=== PATIENT | male | born 1940 | race Caucasian/White ===

== ENCOUNTER 2016-07-29 12:28 | Emergency (ER) | payer MEDICARE, BC ==
[2016-07-29 13:05] LABS: Hematocrit 35.7 % (42.0-52.0); Hemoglobin 12.1 gm/dL (13.5-18.0); Mean Cell Volume 91.8 fl (78-100); Mean Corpuscular Hemoglobin 31.1 pg (27-31); Mean Corpuscular Hgb Conc 33.9 g/dl (32-36); Mean Platelet Volume 8.3 fl (6.0-9.5); Neutrophil # 7.2 K/mm3 (1.3-6.0); Neutrophil % 78.9 % (42-75.0); Platelet Count 204 K/mm3 (150-450); Red Blood Count 3.89 M/mm3 (4.7-6.0); Red Cell Distribution Width 13.2 % (11.5-14.0); White Blood Count 9.1 K/mm3 (4.0-10.5)
--- OUTSIDE RECORDS SUMMARY | 2016-07-29 13:08 | XMS REPORT | Continuity of Care Document ---
:1940 Author Organization [facility] ([facility]) Address [address] [place] [address] Phone [phone] Care Team Providers Name Role Phone Nimisha Cleveland Primary Care Provider [phone] Source Comments This disclosure is being made pursuant to the Care Everywhere program, applicable federal and state laws, and may not contain all informaitonavailable regarding this patient.[facility] ([facility]) Active Allergies and Adverse Reactions Allergen Noted Date Severity Reactions Comments Ciprofloxacin 12/23/2011 OTHER Vomiting and Diarhea Gabapentin 10/10/2014 OTHER constipation Current Medications Prescription Sig. Disp. Refills Start Date End Date Status ACETAMINOPHEN/CAFFEINE Take 2 Caps by Active (EXCEDRIN TENSION mouth as HEADACHE PO) needed. diazepam 2 mg tablet Take 2 mg by Active mouth every 6 hours as needed. MULTIVITAMIN Take 1 Tab by Active W-MINERALS/LUTEIN mouth daily. (CENTRUM SILVER PO) DIPHENHYDRAMINE HCL Take 2 Tabs by Active (BENADRYL PO) mouth 2 times daily. sennosides 8.6 mg tablet Take 1 Tab by Active mouth 2 times daily omeprazole 20 mg enteric Take 1 capsule 90 capsule 3 11/18/2014 Active coated capsule (20 mg total) by mouth daily atorvastatin 40 mg 05/10/2016 Active tablet clopidogrel 75 mg tablet 05/10/2016 Active HYDROcodone-acetaminophe TAKE 1 OR 2 0 05/31/2016 Active n 5-325 mg per tablet TABLETS TWICE DAILY NEEDED FOR PAIN nitroglycerin 0.[address] 1 TABLET 0 06/04/2016 Active tablet UNDER TONGUE EVERY 5 MINUTES, NEEDED FOR CHEST PAIN. (NOT TO EXCEED 2 DOSES IN 15 MINUTES -- IF PAIN PERSISTS, SEEK MEDICA aspirin 81 mg EC tablet Take 81 mg by Active mouth daily. naproxen 250 mg tablet Take 250 mg by Active mouth as needed. omega-3 fatty acids 1 Take 2 g by Active gram capsule mouth 2 times daily. isosorbide mononitrate Take 1 tablet 30 tablet 11 06/12/2016 Active 30 mg CR tablet (30 mg total) by mouth every morning. metoPROLol tartrate 25 Take 1 tablet 60 tablet 11 06/12/2016 Active mg tablet (25 mg total) by mouth 2 times daily. Active Problems Problem Noted Date Tubular adenoma of colon 03/22/2013 Overview: COLON 2013 with tubular adenoma Follow up in one year due to size and fragments removed Constipation 07/01/2012 Most Recent Encounters Date Type Specialty Providers Description 06/12/2016 Office Visit [facility] Suzanne Coker, Dx: Coronary artery DO disease involving [place] coronary artery of [place] heart without angina pectoris (Primary Dx) 05/29/2016 Office Visit [facility] Suzanne Coker, Subj: Appointment DO Canceled 05/29/2016 Office Visit [facility] Suzanne Coker, Dx: Chest pain DO (Primary Dx) Social History Tobacco Use Types Packs/Day Years Used Date Current Every Day Smoker 0.5 60 Smokeless Tobacco: Never Used Tobacco Cessation:Counseling Given: Yes Comments: Alcohol Use Drinks/Week oz/Week Comments Yes social, less than 1 a week Last Filed Vital Signs Vital Sign Reading Time Taken Blood Pressure 110/60 06/12/2016 1:55 PM CDT Pulse 64 06/12/2016 1:55 PM CDT Temperature 36.5 C (97.7 F) 11/02/2014 2:40 PM CDT Respiratory Rate 16 10/10/2014 1:10 PM CDT Height 1.778 m (5' 10") 06/12/2016 1:55 PM CDT Weight 71.668 kg (158 lb) 06/12/2016 1:55 PM CDT Body Mass Index 22.67 06/12/2016 1:55 PM CDT Oxygen Saturation 94% 10/10/2014 1:10 PM CDT Plan of Care Date Type Specialty Providers Description 07/31/2016 Appointment [facility] Suzanne Coker, Subj: Upcoming Appt DO Reminder [address] [place] [address] [phone] (Fax) Health Maintenance Due Date Last Done Comments Hepatitis B Vaccine (1 of 3 - Primary 1940 Series) Tdap Vaccine 1949 Lipid Disorder Screening 1958 Td Vaccine 1958 Zoster Vaccine 1998 Pneumococcal Vaccine (1 of 2 - PCV13) 12/23/2003 Influenza Vaccine: Seasonal (Season Ended) 2016 Colonoscopy 10/19/2024 10/19/2014, 03/23/2013 Results from Last 3 Months Not on file
[2016-07-29 13:16] LABS: Albumin * 3.5 gm/dl (3.4-5.0); Anion Gap 11.8 mmol/L (6.8-13.8); BUN/Creatinine Ratio 17.2 (9.0-21.6); Bilirubin, Total 0.4 mg/dL (0.0-1.1); CRP 3.2 mg/dL (0.0-0.9); Ca. Corrected For Albumin 9.1 mg/dL (8.4-10.2); Carbon Dioxide 27.3 mmol/L (24-32.6); Potassium 4.1 mmol/L (3.4-4.6); Total Protein 7.3 gm/dL (6.2-8.2)
[2016-07-29 13:26] LABS: Urine Bilirubin Negative (NEGATIVE); Urine Blood Negative /ul (NEGATIVE); Urine Ketone Negative (NEGATIVE); Urine Nitrite Negative (NEGATIVE); Urine Protein Negative (NEGATIVE); Urine Specific Gravity 1.025 SP.GR. (1.005-1.030); Urine Urobilinogen Normal (NORMAL)
[2016-07-29 13:35] LABS: Urine Appearance Clear; Urine Bacteria None Seen; Urine Color Dark Yellow; Urine RBC None Seen /hpf (0-5); Urine WBC None Seen /hpf (0-5)
--- NOTE | 2016-07-29 13:44 | ERNOTE ---
Abdominal HPI - Narrative Date of Service: 07/29/16 - General Chief Complaint: Abdominal Pain Time Seen by Provider: 07/29/16 12:59 Source: patient, RN notes reviewed, past records Exam Limitations: no limitations - Immun/Allergies/Home Medications Immunizatons: IMMUNIZATION HX Immunizations Up to Date Yes Allergies/Adverse Reactions: Allergies ciprofloxacin [From Cipro] Allergy (Verified 07/29/16 12:49) ciprofloxacin HCl [From Cipro] Allergy (Verified 07/29/16 12:49) gabapentin Allergy (Verified 07/29/16 12:49) Home Medications: HOME MEDICATIONS Aspirin 81 mg PO DAILY 07/29/16 [Last Taken Unknown] Aspirin/Acetaminophen/Caffeine [Excedrin Extra Strength] 1 tab PO BID 07/29/16 [ Last Taken Unknown] Atorvastatin Calcium [Lipitor] 40 mg PO HS 07/29/16 [Last Taken Unknown] Bisacodyl [Dulcolax] 5 mg PO HS 07/29/16 [Last Taken Unknown] Budesonide/Formoterol Fumarate [Symbicort 160-4.5 Mcg Inhaler] 10.2 gm IH BID [Last Taken Unknown] Ciprofloxacin HCl [Cipro] 500 mg PO BID #20 tablet 07/29/16 [Last Taken Unknown] Clopidogrel Bisulfate [Plavix] 75 mg PO DAILY 07/29/16 [Last Taken Unknown] Diazepam [Valium] 2 mg PO DAILY 07/29/16 [Last Taken Unknown] Dicyclomine HCl [Bentyl] 20 mg PO Q6H 07/29/16 [Last Taken Unknown] Diphenhydramine HCl [Benadryl] 50 mg PO BID 07/29/16 [Last Taken Unknown] Folic Acid/Multivit-Min/Lutein [Centrum Silver Chewable Tablet] 1 each PO DAILY 07/29/16 [Last Taken Unknown] HYDROcodone/ACETAMINOPHEN [Scalf 5-325] 1 - 2 tab PO Q6H PRN 07/29/16 [Last Taken Unknown] Isosorbide Mononitrate [Imdur] 30 mg PO DAILY 07/29/16 [Last Taken Unknown] Metoprolol Succinate [Toprol Xl] 25 mg PO BID 07/29/16 [Last Taken Unknown] Multivitamin [Multivitamins] 1 each PO DAILY 07/29/16 [Last Taken Unknown] Naproxen Sodium [All Day Relief] 220 mg PO DAILY 07/29/16 [Last Taken Unknown] Nitroglycerin [Nitrostat] 0.4 mg SL Q5MIN PRN 07/29/16 [Last Taken Unknown] [place]-3 Fatty Acids [[place]-3] 1,000 mg PO DAILY 07/29/16 [Last Taken Unknown] Omeprazole 20 mg PO DAILY 07/29/16 [Last Taken Unknown] Sennosides [Senokot] 17.2 mg PO DAILY 07/29/16 [Last Taken Unknown] guaiFENesin [Mucus Relief] 200 mg PO Q4H 07/29/16 [Last Taken Unknown] metroNIDAZOLE [Flagyl] 500 mg PO Q8H #30 tablet 07/29/16 [Last Taken Unknown] - History of Present Illness Narrative: 75 y/o male to ED by private vehicle for LLQ abdominal pain that began 10 days ago. He has chronic constipation and routinely takes Sennecot. He also took Milk of Magnesia today. He has had several loose stools but continues to have pain that is gradually worsening. He denies any nausea or vomiting. He does report having a poor appetite and a dry mouth. He took Scalf for pain [employer]. Timing: getting worse Quality: moderate, aching Activities at Onset: none Prior Abdominal Problems: Present: similar symptoms Prior Treatment: Absent: recently seen Review of Systems - Review of Systems Constitutional: Present: fatigue, malaise. Absent: fever, chills EYE: Present: no symptoms reported ENT: Present: no symptoms reported Respiratory: Absent: shortness of breath, cough Cardiology: Absent: chest pain, edema Gastrointestinal/Abdominal: Present: diarrhea, constipation, abdominal pain, eating less, drinking less. Absent: nausea, vomiting Genitourinary: Absent: dysuria, hematuria, decreased urinary output Musculoskeletal: Present: back pain. Absent: neck pain Skin: Absent: rash, lesions, lumps, change in color Neurological: Absent: headache, dizziness/light-headedness Endocrine: Present: no symptoms reported Hematologic/Lymphatic: Present: no symptoms reported Psych: Present: no symptoms reported - Patient's Past Medical History Patient History - Medical: Arthritis, Depression, GERD, Other Patient History - Cardiac/Respiratory: Asthma, Coronary Heart Disease, COPD, Hyperlipidemia, Myocardial Infarction Patient History - Cancer: Prostate Patient History - Surgical Procedures: Cholecystectomy, Colonoscopy, Cardiac stent, T & A, Other, Hernia Repair - Social History Living Situations: spouse Smoking Status: Current every day smoker Have you smoked in the past 12 months: Yes Alcohol Use: none Drug Use: none - Immunizations Immunizations Up to Date: Yes Physical Exam - Physical Exam General Appearance: Present: alert, mild distress, thin, other - appropriately dressed/groomed Respiratory: Present: no respiratory distress, no accessory muscle use, lungs clear, expiration (prolonged) Cardiovascular/Chest: Present: regular rate, rhythm, no murmur Gastrointestinal/Abdominal: Present: normal bowel sounds, nondistended, soft, tenderness - LLQ. Absent: guarding, rebound, mass, hernia Back Exam: Present: normal inspection, no CVA tenderness Extremity Exam: Present: normal inspection, normal range of motion, no edema Neurological Exam: Present: alert, oriented, normal mood/affect, no motor/ sensory deficits Skin Exam: Present: normal color, warm/dry ED Progress - Results and Orders Patient's Lab Results:: I have reviewed the patient's lab results. - Vital Signs Patient's Vital Signs:: I have reviewed the patient's vital signs. Vital Signs: Vital Signs 07/29/16 12:46 Temperature 37.1 C Pulse Rate 71 Respiratory 12 Rate Blood Pressure 122/64 O2 Sat by Pulse 96 Oximetry - X-Ray X-Ray #1 X-Ray: abdomen Interpretation: Reviewed by me X-ray Comments: TECHNIQUE: AP upright and supine views of the abdomen were obtained, total of 4 images. COMPARISONS: None available. FINDINGS: Abdomen Flat W/ Upright *: No subdiaphragmatic free air. No definite signs of bowel obstruction. Upright view demonstrates scattered air-fluid levels within colonic segments throughout the abdomen. Curvilinear calcifications are noted in the left upper quadrant suggestive of atherosclerotic vascular calcifications. Calcifications also suggested along the abdominal aorta with either potential aneurysm versus ectasia noted, with lateral convex array of calcifications projecting just left of the L3 and L4 levels. Osseous structures are intact. Degenerative changes of the mid to lower lumbar spine and bilateral hips noted. Surgical clips are seen in the right upper quadrant of the abdomen suggestive of prior cholecystectomy. IMPRESSION: 1. Air-fluid levels within colonic segments could be compatible with colitis/diarrhea. 2. Vascular calcifications noted as above. Potential abdominal aortic ectasia versus aneurysm. 3. Additional comments are as above. Electronically signed by Easton Ravi M.D.. - CT/Ultrasound CT/Ultrasound Narrative: TECHNIQUE: Contrast enhanced CT images of the abdomen during portal venous phase obtained. Excretory phase images of the abdomen and pelvis were also obtained. Coronal reconstructions were also submitted. Oral contrast material was given. COMPARISON: None available. CT Abdomen/Pelvis W/ Contrast ABDOMEN: Lungs: Mild dependent atelectasis present. Mild to moderate cardiomegaly suggested. No significant pericardial effusion. Coronary arterial vascular calcifications present. There is a fat-containing [place] hernia on the right side. Liver: No focal mass or intrahepatic ductal dilation apparent. There is a tiny 2 mm hypodensity in the right hepatic lobe on series 3 image 6, most likely benign, and no further follow-up is needed unless otherwise clinically indicated. Gallbladder: Surgically absent. Pancreas: The pancreas appears to be normal in appearance. Spleen: The spleen is unremarkable. Adrenal glands: Unremarkable without focal finding. Kidneys: Normal appearance without focal mass or hydronephrosis. Multiple bilateral renal cysts are noted. Aorta: Extensive calcified atherosclerotic plaques are noted throughout the aortic segments as visualized. There is tortuosity/ectasia. Diameter of the infrarenal segment at the level of the inferior mesenteric artery origin is 2.2 x 2.7 cm. Retroperitoneum: No pathologic size lymphadenopathy or mass within the retroperitoneum is seen. Stomach: Partially opacified stomach grossly unremarkable. Small bowel: Unremarkable, without signs of obstruction, bowel wall thickening, or mesenteric inflammatory changes. Colon: Extensive diverticulosis of the sigmoid colon noted. Mild bowel wall prominence and mildly increased number of the mesenteric vasculature of the sigmoid mesial colon noted. Normal caliber appendix seen. There is best seen on series 4 image 49 and series 5 image 29. Abdominal wall: There is a small fat-containing umbilical hernia. No evidence for intraperitoneal free air. PELVIS: The urinary bladder appears to be grossly unremarkable. Prostate: Prostate enlargement is noted, measuring 3.8 cm AP x 5.0 cm transverse x 5.1 cm longitudinal. No definite signs of pelvic lymphadenopathy or masses are noted. No evidence of free pelvic fluid noted. Bones: Osseous structures appear intact without obvious destructive changes. Degenerative changes of the lower lumbar spine and bilateral hips noted. IMPRESSION: 1. Diverticulosis of the sigmoid colon with possible mild inflammatory changes. Consider mild diverticulitis or colitis. 2. Abdominal aortic atherosclerotic disease, with ectasia/dilation measuring 2.2 x 2.7 cm. 3. Additional comments as above. Electronically signed by Easton Ravi M.D.. - Progress/Reassessment Chief Complaint: Abdominal Pain Progress:: Improved Plan - Plan Plan: Pain improved after Toradol IV. Patient reports Cipro allergy but was actual just GI upset. Started on Cipro and Flagyl, instructed to take with food. Discussed S/S of worsening condition that would need f/u - patient agrees to return if needed. Departure - Departure Clinical Impression: Diverticulitis Qualifiers: Diverticulitis site: unspecified part of intestinal tract Diverticulitis bleeding: without bleeding Diverticulitis complication: without perforation or abscess Qualified Code(s): K57.92 - Diverticulitis of intestine, part unspecified, without perforation or abscess without bleeding Disposition: Home Follow Up Needed Condition: Stable Instructions: Diverticulitis, [id number] Additional Instructions: Soft bland diet as tolerated Increase fluid intake Return to ER for fever, worsening pain, vomiting or other concerning symptoms Referrals: Nimisha Clevleand DO [Primary Care Provider] - Prescriptions: Ciprofloxacin HCl [Cipro] 500 mg PO BID #20 tablet metroNIDAZOLE [Flagyl] 500 mg PO Q8H #30 tablet
[2016-07-29] MEDS ORDERED: DIATRIZOATE MEGLU/DIATRIZO SOD 30 ML BTL ONE (14:02)
[2016-07-29] MEDS ORDERED: DIATRIZOATE MEGLU/DIATRIZO SOD 30 ML BTL PO ONE (14:06)
[2016-07-29] MEDS ORDERED: KETOROLAC TROMETHAMINE 30 MG/ML VIAL ONE (15:58)
[2016-07-29] MEDS ORDERED: KETOROLAC TROMETHAMINE 30 MG/ML VIAL IV ONE (16:00)
[2016-07-29 16:44] VITALS: BP 123/71
[2016-07-29] MEDS ORDERED: CIPROFLOXACIN HCL 250 MG TABLET PO ONE (16:58)
[2016-07-29] MEDS ORDERED: metroNIDAZOLE 250 MG TABLET PO ONE (16:58)
[2016-07-29] MEDS ORDERED: metroNIDAZOLE 250 MG TABLET ONE (17:05)
[2016-07-29] MEDS ORDERED: CIPROFLOXACIN HCL 250 MG TABLET ONE (17:05)
== END 2016-07-29 17:10 | disposition home or self-care (01) ==
LOC: ER 12:28
DX: K57.92 Diverticulitis of intestine, part unspecified, without perforation or abscess without bleeding (principal); Z72.0 Tobacco use; M19.90 Unspecified osteoarthritis, unspecified site; F32.89 Other specified depressive episodes; K21.9 Gastro-esophageal reflux disease without esophagitis; J44.9 Chronic obstructive pulmonary disease, unspecified; I25.2 Old myocardial infarction; E78.5 Hyperlipidemia, unspecified

== ENCOUNTER 2016-09-23 15:18 | Inpatient (IN) | payer MEDICARE, BC ==
[2016-09-23] MEDS ORDERED: oxyCODONE HCL/ACETAMINOPHEN 1 TAB TABLET PO PRN (15:57)
[2016-09-23] MEDS ORDERED: ONDANSETRON HCL/PF 2 MG/ML VIAL IV PRN (15:57)
[2016-09-23] MEDS ORDERED: diphenhydrAMINE HCL 50 MG/ML VIAL IV PRN (15:57)
[2016-09-23 16:19] LABS: Hematocrit 35.8 % (42.0-52.0); Hemoglobin 12.2 gm/dL (13.5-18.0); Mean Cell Volume 91.3 fl (78-100); Mean Corpuscular Hemoglobin 31.1 pg (27-31); Mean Corpuscular Hgb Conc 34.1 g/dl (32-36); Mean Platelet Volume 8.3 fl (6.0-9.5); Neutrophil # 6.4 K/mm3 (1.3-6.0); Neutrophil % 70.1 % (42-75.0); Platelet Count 296 K/mm3 (150-450); Red Blood Count 3.92 M/mm3 (4.7-6.0); Red Cell Distribution Width 12.9 % (11.5-14.0); White Blood Count 9.1 K/mm3 (4.0-10.5)
[2016-09-23 16:32] LABS: ALT 23 U/L (19-67); AST 20 U/L (0-48); Albumin * 3.2 gm/dl (3.4-5.0); Alkaline Phosphatase * 102 U/L (50-170); Anion Gap 15.9 mmol/L (6.8-13.8); Bilirubin Direct 0.1 mg/dL (0.0-0.3); Bilirubin, Total 0.2 mg/dL (0.0-1.1); Bilirubin,Indirect 0.1 mg/dL (0.1-0.7); Blood Urea Nitrogen 20 mg/dL (6-23); Calcium * 9.1 mg/dL (7.9-10.9); Carbon Dioxide 24.1 mmol/L (24-32.6); Chloride 104 mmol/L (97-106); Glucose * 89 mg/dL (70-110); Sodium 140 mmol/L (132-142); Total Protein 7.5 gm/dL (6.2-8.2)
[2016-09-23] MEDS ORDERED: NICOTINE 14 MG PATC TD PRN (16:33)
[2016-09-23] MEDS: oxyCODONE HCL/ACETAMINOPHEN 1 TAB TABLET PO PRN ×2 (17:56→23:55)
[2016-09-23] MEDS: HEPARIN SODIUM,PORCINE 5,000 UNITS/ML VIAL SC SCH (17:57)
[2016-09-23 19:03] LABS: Urine Bilirubin Negative (NEGATIVE); Urine Blood Negative /ul (NEGATIVE); Urine Ketone Negative (NEGATIVE); Urine Nitrite Negative (NEGATIVE); Urine Protein Negative (NEGATIVE); Urine Urobilinogen Normal (NORMAL)
[2016-09-23 19:10] LABS: Urine Appearance Clear; Urine Bacteria TRACE; Urine Color Yellow; Urine RBC None Seen /hpf (0-5); Urine WBC TRACE /hpf (0-5)
[2016-09-23] MEDS ORDERED: NITROGLYCERIN 0.4 MG/TAB BTL SL PRN (19:32)
[2016-09-23] MEDS ORDERED: DIAZEPAM 2 MG TABLET PO PRN (19:32)
--- NOTE | 2016-09-23 19:37 | HP ---
Chief Complaint - Chief Complaint Date of Service: 09/23/16 Time of Service: 16:30 Chief Complaint: RLQ abdominal pain, weight loss, liquid stool but feels constipated History of Present Illness: The patient is a 75-year-old male who presented to my clinic for recheck and at the visit the patient complained of significant abdominal pain especially in the right lower quadrant. The patient has been struggling with abdominal pain and issues related to constipation for at least the past 3 months but the abdominal pain has continued to get worse, especially over the past few days to weeks. The patient does have a history of chronic constipation for 5+ years. The patient states that he feels very constipated and backed-up despite only passing liquid stools for the last few days. The patient also has been experiencing unintentional weight loss. Since 03/21/2016 the patient has lost approximately 20 pounds, 10 pounds of which he has lost the last 3 weeks. The patient's most recent colonoscopy per patient was in 2014 and was normal; however, I do not have records of this so I again had the patient sign consent to try and obtain these records/reports. - Patient's Past Medical History Patient History - Medical: Arthritis, Depression, GERD, Other Patient History - Cardiac/Respiratory: Asthma, Coronary Heart Disease, COPD, Hyperlipidemia, Myocardial Infarction Patient History - Cancer: Prostate Patient History - Surgical Procedures: Cholecystectomy, Colonoscopy, Cardiac stent, T & A, Other, Hernia Repair Patient History - Other: None - Family History Mother Family History - Medical: , No pertinent hx, History Unknown Family History - Cardiac/Respiratory: No pertinent hx, History Unknown Family History - Cancer: No pertinent family hx, History Unknown Father Family History - Medical: , No pertinent hx, History Unknown Family History - Cardiac/Respiratory: History Unknown Family History - Cancer: No pertinent family hx, History Unknown Sister Family History - Medical: Other Family History - Cardiac/Respiratory: No pertinent hx Family History - Cancer: No pertinent family hx - Social History Living Situations: alone Abuse History: No History of abuse Psych History: Hx of Depression Smoking Status: Current every day smoker Have you smoked in the past 12 months: Yes Do you dip or chew tobacco: No Patient requests Smoking Cessation Consult: No Alcohol Use: none Drug Use: none - Immunizations Immunizations Up to Date: Yes Review Of Systems (GEN) - Review of Systems Generalized/Overall Review: Present: Weakness, Fatigue, Weight loss. Absent: Chills, Fever EENTM: Present: No Symptoms Reported Respiratory: Present: No Symptoms Reported Cardiac: Present: No Symptoms Reported Abdominal: Present: Nausea, Abdominal Pain, Constipation, Diarrhea. Absent: Vomiting, Hematemesis, Melena, Bright blood from rectum Genitourinary: Present: No Symptoms Reported Musculoskeletal: Present: Joint Pain - chronic, Back Pain - Chronic Neurological: Present: No Symptoms Reported Skin: Present: No Symptoms Reported Endocrine: Present: No Symptoms Reported Misc: All systems neg except as marked Immunizations: IMMUNIZATION HX Immunizations Up to Date Yes Allergies/Adverse Reactions: Allergies Allergy/AdvReac Type Severity Reaction Status Date / Time ciprofloxacin [From Cipro] AdvReac Mild UPSET Verified 09/23/16 17:05 STOMACH ciprofloxacin HCl AdvReac Mild UPSET Verified 09/23/16 17:05 [From Cipro] STOMACH gabapentin AdvReac Mild Vomiting Verified 09/23/16 17:05 Home Medications: HOME MEDICATIONS Aspirin 81 mg PO DAILY 07/29/16 [Last Taken Unknown] Aspirin/Acetaminophen/Caffeine [Excedrin Extra Strength] 1 tab PO BID 07/29/16 [ Last Taken Unknown] Atorvastatin Calcium [Lipitor] 40 mg PO HS 07/29/16 [Last Taken Unknown] Bisacodyl [Dulcolax] 5 mg PO HS 07/29/16 [Last Taken Unknown] Budesonide/Formoterol Fumarate [Symbicort 160-4.5 Mcg Inhaler] 10.2 gm IH BID [Last Taken Unknown] Clopidogrel Bisulfate [Plavix] 75 mg PO DAILY 07/29/16 [Last Taken Unknown] Diazepam [Valium] 2 mg PO DAILY 07/29/16 [Last Taken Unknown] Diphenhydramine HCl [Benadryl] 50 mg PO BID 07/29/16 [Last Taken Unknown] Folic Acid/Multivit-Min/Lutein [Centrum Silver Chewable Tablet] 1 each PO DAILY 07/29/16 [Last Taken Unknown] HYDROcodone/ACETAMINOPHEN [Brandon 5-325] 1 - 2 tab PO Q6H PRN 07/29/16 [Last Taken Unknown] Isosorbide Mononitrate [Imdur] 30 mg PO DAILY 07/29/16 [Last Taken Unknown] Metoprolol Succinate [Toprol Xl] 25 mg PO BID 07/29/16 [Last Taken Unknown] Multivitamin [Multivitamins] 1 each PO DAILY 07/29/16 [Last Taken Unknown] Naproxen Sodium [All Day Relief] 250 mg PO DAILY 07/29/16 [Last Taken Unknown] Nitroglycerin [Nitrostat] 0.4 mg SL Q5MIN PRN 07/29/16 [Last Taken Unknown] Stratford-3 Fatty Acids [Stratford-3] 1,000 mg PO DAILY 07/29/16 [Last Taken Unknown] Omeprazole 20 mg PO DAILY 07/29/16 [Last Taken Unknown] Sennosides [Senokot] 17.2 mg PO DAILY 07/29/16 [Last Taken Unknown] Exam - Exam Vital Signs: Vital Signs - Last Taken Temp 37.0 C 09/23/16 16:25 Pulse 69 09/23/16 16:25 Resp 16 09/23/16 16:25 BP 137/69 09/23/16 16:25 Pulse Ox 96 09/23/16 16:25 Constitutional: Present: Alert, Oriented x3, Cooperative, Well developed, No distress, Elderly ENT Exam: Present: hearing grossly normal, moist mucous membranes Eye Exam: bilateral eye: normal inspection, EOMI Respiratory: Present: lungs clear, no respiratory distress, no accessory muscle use, expiration (prolonged), other - Diminished breath sounds bilaterally without crackles, rhonchi or wheezes appreciated Cardiovascular/Chest: Present: regular rate, rhythm, edema - Trace edema in bilateral lower extremities Abdomen: Present: soft, nondistended, tender - Diffuse tenderness to palpation with the most severe tenderness being located in the right lower quadrant. Absent: guarding, rigidity Extremity: Present: normal inspection, lower extremity edema - Trace edema in bilateral lower extremities Skin Exam: Present: normal color, warm/dry, no cyanosis Neurologic: Present: no motor/sensory deficits, alert, normal mood/affect, oriented x 3 Appearance: Present: appropriate appearance, appropriate insight, neat, no memory impairment Eye contact: Present: cooperative, good eye contact, normal speech Thoughts: Present: normal thought pattern, no apparent hallucination Diagnostic Studies: Abnormal Lab Results 09/23/16 09/23/16 09/23/16 Range/Units 16:10 16:10 16:10 RBC 3.92 L (4.7-6.0) M/mm3 Hgb 12.2 L (13.5-18.0) gm/dL Hct 35.8 L (42.0-52.0) % MCH 31.1 H (27-31) pg Immature Gran # (Auto) 0.04 H (0.000-0.0310) K/mm3 Lymphocytes % 18.4 L (20-51) % Eosinophils % 3.7 H (0.0-3.0) % Neutrophils # 6.4 H (1.3-6.0) K/mm3 Anion Gap 15.9 H (6.8-13.8) mmol/L Albumin 3.2 L (3.4-5.0) gm/dl Prostate Specific Ag 788.77 H (0.00-4.00) ng/mL Laboratory Results WBC 9.1 K/mm3 (4.0-10.5) 09/23/16 16:10 RBC 3.92 M/mm3 (4.7-6.0) L 09/23/16 16:10 Hgb 12.2 gm/dL (13.5-18.0) L 09/23/16 16:10 Hct 35.8 % (42.0-52.0) L 09/23/16 16:10 MCV 91.3 fl (78-100) 09/23/16 16:10 MCH 31.1 pg (27-31) H 09/23/16 16:10 MCHC 34.1 g/dl (32-36) 09/23/16 16:10 RDW 12.9 % (11.5-14.0) 09/23/16 16:10 Plt Count 296 K/mm3 (150-450) 09/23/16 16:10 MPV 8.3 fl (6.0-9.5) 09/23/16 16:10 Immature Gran % (Auto) 0.40 % (0.001-0.429) 09/23/16 16:10 Immature Gran # (Auto) 0.04 K/mm3 (0.000-0.0310) H 09/23/16 16:10 Neutrophils % 70.1 % (42-75.0) 09/23/16 16:10 Lymphocytes % 18.4 % (20-51) L 09/23/16 16:10 Monocytes % 6.4 % (0.0-9) 09/23/16 16:10 Eosinophils % 3.7 % (0.0-3.0) H 09/23/16 16:10 Basophils % 1.0 % (0.0-1.0) 09/23/16 16:10 Nucleated RBC % 0.0 k/mm3 (0-1) 09/23/16 16:10 Neutrophils # 6.4 K/mm3 (1.3-6.0) H 09/23/16 16:10 Lymphocytes # 1.7 k/mm3 (1.5-3.5) 09/23/16 16:10 Monocytes # 0.6 k/mm3 (0.0-1.0) 09/23/16 16:10 Eosinophils # 0.3 k/mm3 (0.0-0.7) 09/23/16 16:10 Absolute Basophils 0.1 k/mm3 (0.0-0.1) 09/23/16 16:10 Sodium 140 mmol/L (132-142) 09/23/16 16:10 Plasma Sodium 140 mmol/L (130-142) 09/23/16 16:10 Potassium 4.0 mmol/L (3.4-4.6) 09/23/16 16:10 Chloride 104 mmol/L (97-106) 09/23/16 16:10 Carbon Dioxide 24.1 mmol/L (24-32.6) 09/23/16 16:10 Anion Gap 15.9 mmol/L (6.8-13.8) H 09/23/16 16:10 BUN 20 mg/dL (6-23) 09/23/16 16:10 Creatinine 1.25 mg/dL (0.4-1.4) 09/23/16 16:10 Est GFR (Non-Af Amer) 60 mL/min (60-130) 09/23/16 16:10 BUN/Creatinine Ratio 16.0 (9.0-21.6) 09/23/16 16:10 Random Glucose 89 mg/dL (70-110) 09/23/16 16:10 Lactic Acid, Venous 1.0 mmol/L (0.4-1.9) 09/23/16 16:10 Calcium 9.1 mg/dL (7.9-10.9) 09/23/16 16:10 Total Bilirubin 0.2 mg/dL (0.0-1.1) 09/23/16 16:10 Direct Bilirubin 0.1 mg/dL (0.0-0.3) 09/23/16 16:10 Indirect Bilirubin 0.1 mg/dL (0.1-0.7) 09/23/16 16:10 AST 20 U/L (0-48) 09/23/16 16:10 ALT 23 U/L (19-67) 09/23/16 16:10 Alkaline Phosphatase 102 U/L (50-170) 09/23/16 16:10 Total Protein 7.5 gm/dL (6.2-8.2) 09/23/16 16:10 Albumin 3.2 gm/dl (3.4-5.0) L 09/23/16 16:10 Prostate Specific Ag 788.77 ng/mL (0.00-4.00) H 09/23/16 16:10 Urine Color Yellow 09/23/16 18:35 Urine Appearance Clear 09/23/16 18:35 Urine pH 5.0 pH (5.0-7.0) 09/23/16 18:35 Ur Specific [place] 1.020 SP.GR. (1.005-1.030) 09/23/16 18:35 Urine Protein Negative mg/dL (NEGATIVE) 09/23/16 18:35 Urine Glucose (UA) Negative mg/dL (NEGATIVE) 09/23/16 18:35 Urine Ketones Negative mg/dL (NEGATIVE) 09/23/16 18:35 Urine Blood Negative /ul (NEGATIVE) 09/23/16 18:35 Urine Nitrate Negative (NEGATIVE) 09/23/16 18:35 Urine Bilirubin Negative mg/dl (NEGATIVE) 09/23/16 18:35 Urine Urobilinogen Normal EU/dl (NORMAL) 09/23/16 18:35 Ur Leukocyte Esterase Negative /ul (NEGATIVE) 09/23/16 18:35 Urine RBC None seen /hpf (0-5) 09/23/16 18:35 Urine WBC Trace /hpf (0-5) 09/23/16 18:35 Ur Epithelial Cells None seen /hpf (0-5) 09/23/16 18:35 Urine Bacteria Trace (NONE) 09/23/16 18:35 Urine Culture Comments No culture indicated 09/23/16 18:35 Assessment/Plan - Narrative Narrative: IMPRESSION & PLAN: Unintentional Weight Loss -Since 03/21/2016 the patient has lost approximately 20 pounds, 10 pounds of which he has lost the last 3 weeks -Unclear etiology at this time -Possibly due to decreased caloric intake secondary to abdominal pain and/ or GI loss. -Given the patient's history of prostate cancer, check PSA -Consider dietitian consult -Daily standing weights -CT of abdomen and pelvis with both IV and oral contrast ordered Abdominal Pain -Pain meds as needed -Continue aggressive bowel regimen for now. Further recommendations pending results of CT scan. Acute on Chronic Constipation with overflow of liquid stool -Check occult stool -Stool culture -Continue aggressive bowel regimen for now. Further recommendations pending results of CT scan. CHRONIC STABLE MEDICAL CONDITIONS: CAD with history of ID: Continue home medications - Aspirin, Plavix, atorvastatin and metoprolol tartrate (patient is on tartrate, not succinate as originally documented in the patient's home medication list) Hyperlipidemia: Continue home statin COPD: Continue home medications - Symbicort GERD: Continue home PPI History of Prostate Cancer: I unfortunately do not have complete records regarding the patient's history of prostate cancer. Per the records I do have, the patient apparently had a prostate biopsy on 07/06/2014 and it appears this was done at [facility]. Check PSA. Anxiety and Depression: Stable. Continue valium PRN. Tobacco Abuse: Nicotine patch PRN. VTE ppx: Heparin 5000 Units SubQ Q12H, MARCIANO perea SCDs - Assessment/Plan (1) Weight loss, abnormal Problem: Acute (2) Weight loss, non-intentional Problem: Acute (3) Abdominal pain Problem: Acute (4) RLQ abdominal pain Problem: Acute
[2016-09-23] MEDS: BISACODYL 5 MG TABLET.DR PO SCH (20:43)
[2016-09-23] MEDS: FLUTICASONE/SALMETEROL 14 PUFF DISK.W.DEV IH SCH (20:47)
[2016-09-23] MEDS ORDERED: METOPROLOL SUCCINATE 50 MG TABLET.SA PO ONE (20:51)
[2016-09-23] MEDS ORDERED: METOPROLOL SUCCINATE 50 MG TABLET.SA PO SCH (21:00)
[2016-09-23] MEDS ORDERED: METOPROLOL SUCCINATE 25 MG TABLET.SA PO SCH (21:00)
[2016-09-23] MEDS ORDERED: ATORVASTATIN CALCIUM 40 MG TABLET PO SCH (21:00)
[2016-09-23] MEDS: NORMAL SALINE 1,000 ML IV PRN (23:56)
[2016-09-24] MEDS: oxyCODONE HCL/ACETAMINOPHEN 1 TAB TABLET PO PRN ×4 (04:05→23:44)
[2016-09-24] MEDS: HEPARIN SODIUM,PORCINE 5,000 UNITS/ML VIAL SC SCH ×2 (05:42→17:02)
--- NOTE | 2016-09-24 07:01 | PN ---
Subjective - Date and Time Seen Date: 09/24/16 Time: 06:57 Subjective Narrative: Patient seen and examined at bedside. No acute issues overnight. Patient continues to have RLQ pain but admits that the pain is improved with pain medications as needed. He continues to have nausea which is improved with zofran. Objective - Review of Systems Generalized/Overall Review: Reports: Weakness, Fatigue, Weight loss. Denies: Chills, Fever EENTM: Reports: No Symptoms Reported Respiratory: Reports: No Symptoms Reported Cardiac: Reports: No Symptoms Reported Abdominal: Reports: Nausea, Abdominal Pain, Constipation, Diarrhea. Denies: Vomiting, Hematemesis, Melena, Bright blood from rectum Genitourinary Symptoms: Reports: No Symptoms Reported Musculoskeletal Complaints: Reports: Joint Pain, Back Pain Neurological: Reports: No Symptoms Reported Skin: Reports: No Symptoms Reported Endocrine: Reports: No Symptoms Reported Misc: All systems neg except as marked - Vitals Vitals: Last Vital Signs Temp 37.0 C 09/24/16 04:10 Pulse 61 09/24/16 04:10 Resp 17 09/24/16 04:10 BP 109/74 09/24/16 04:10 Pulse Ox 96 09/24/16 04:10 - Abnormal Lab Findings Abnormal Lab Findings: Abnormal Lab Results 09/23/16 09/23/16 09/23/16 Range/Units 16:10 16:10 16:10 RBC 3.92 L (4.7-6.0) M/mm3 Hgb 12.2 L (13.5-18.0) gm/dL Hct 35.8 L (42.0-52.0) % MCH 31.1 H (27-31) pg Immature Gran # (Auto) 0.04 H (0.000-0.0310) K/mm3 Lymphocytes % 18.4 L (20-51) % Eosinophils % 3.7 H (0.0-3.0) % Neutrophils # 6.4 H (1.3-6.0) K/mm3 Anion Gap 15.9 H (6.8-13.8) mmol/L Albumin 3.2 L (3.4-5.0) gm/dl Prostate Specific Ag 788.77 H (0.00-4.00) ng/mL - Exam Constitutional: Present: Alert, Oriented x3, Cooperative, Well developed, No distress, Elderly ENT Exam: Present: hearing grossly normal, moist mucous membranes Respiratory: Present: lungs clear - Diminished breath sounds bilaterally without crackles, rhonchi or wheezes appreciated, no respiratory distress, no accessory muscle use, expiration (prolonged) Cardiovascular/Chest: Present: regular rate, rhythm, edema - Trace edema in bilateral lower extremities Abdomen: Present: soft, tender - Diffuse TTP with most severe tenderness located in the RLQ. Absent: guarding, rigidity Extremity: Present: normal inspection Skin Exam: Present: normal color, warm/dry, no cyanosis Neurologic: Present: no motor/sensory deficits, alert, normal mood/affect, oriented x 3 Appearance: Present: appropriate appearance, appropriate insight, neat, no memory impairment Eye contact: Present: cooperative, good eye contact, normal speech Thoughts: Present: normal thought pattern, no apparent hallucination Assessment/Plan Plan Narrative: IMPRESSION & PLAN: Right Sided Colitis -CT of the abdomen and pelvis with both IV and oral contrast on 09/24/2016 revealed bowel wall thickening of the cecum and ascending colon. Results discussed with radiologist Dr. Bettencourt. CT also reviewed and discussed with general surgeon, Dr. Luo. We discussed whether or not the patient would benefit from colonoscopy with biopsies during his admission; however, this will not change her plan of care and thus we will hold off on doing a colonoscopy for now. The patient fails to improve or has clinical decline, Dr. Luo will be formally consulted at that time and we will re-entertain the idea of a possible colonoscopy with biopsies. -Patient previously treated with oral ciprofloxacin and Flagyl 14 days in July 2016 -Blood cultures ordered -Check ESR and CRP. Trend inflammatory markers and repeat ESR and CRP in AM -Start IV Zosyn with plans to continue IV antibiotics for at least the next 2 -3 days. Monitor clinical course and hopefully patient can be transitioned to oral antibiotics and discharged home before the weekend. -Continue PRN pain and nausea meds -Stool occult blood testing pending -Stool culture pending Unintentional Weight Loss -Since 03/21/2016 the patient has lost approximately 20 pounds, 10 pounds of which he has lost the last 3 weeks -Etiology likely multifactorial and due to decreased caloric intake secondary to abdominal pain +/- GI loss. -Prostate cancer with a markedly elevated PSA also possibly contributing to weight loss -Daily standing weights Urinary Retention -UA unremarkable -Etiology likely secondary to enlarged prostate in combination with acute intrabdominal inflammation from colitis -Start flomax -Straight cath PRN History of Prostate Cancer -I unfortunately do not have complete records regarding the patient's history of prostate cancer. Per the records I do have, the patient apparently had a prostate biopsy on 07/06/2014 and it appears this was done at [facility]. PSA checked on admission and was markedly elevated at 788. After further discussion with the patient, he admits that he did not have appropriate follow- up with urologist, Dr. Queen, secondary to his becoming ill and Ed had somewhat neglected his own health to help take care of her. -I will either asked Dr. Queen to see the patient on Friday when he is here for clinic or I will just have him follow-up as an outpatient CHRONIC STABLE MEDICAL CONDITIONS: CAD with history of HI: Continue home medications - Aspirin, Plavix, atorvastatin and metoprolol tartrate (patient is on tartrate, not succinate as originally documented in the patient's home medication list) Hyperlipidemia: Continue home statin COPD: Continue home medications - Symbicort GERD: Continue home PPI Anxiety and Depression: Stable. Continue valium PRN. Tobacco Abuse: Nicotine patch PRN. Chronic Constipation: Continue bowel regimen as needed. VTE ppx: Heparin 5000 Units SubQ Q12H, MARCIANO perea, SCDs - Problems/Diagnosis (1) Right sided colitis Problem: Acute (2) Weight loss, abnormal Problem: Acute (3) Weight loss, non-intentional Problem: Acute (4) Abdominal pain Problem: Acute (5) RLQ abdominal pain Problem: Acute (6) CAD (coronary artery disease) Problem: Chronic (7) Hyperlipidemia Problem: Chronic (8) COPD (chronic obstructive pulmonary disease) Problem: Chronic (9) GERD (gastroesophageal reflux disease) Problem: Chronic (10) History of prostate cancer Problem: Chronic (11) Anxiety and depression Problem: Chronic (12) Tobacco abuse Problem: Chronic
[2016-09-24] MEDS: HYDROmorphone HCL 1 MG/ML DISP.SYRIN IV PRN ×6 (07:40→21:08)
[2016-09-24] MEDS: PANTOPRAZOLE SODIUM 20 MG TABLET.DR PO SCH (07:43)
[2016-09-24] MEDS: NORMAL SALINE 1,000 ML IV PRN ×2 (07:53→16:36)
[2016-09-24] MEDS ORDERED: DIATRIZOATE MEGLUMINE, SODIUM 30 ML BTL PO ONE (08:55)
[2016-09-24] MEDS ORDERED: ONDANSETRON HCL/PF 2 MG/ML VIAL IV ONE (08:58)
[2016-09-24] MEDS: FLUTICASONE/SALMETEROL 14 PUFF DISK.W.DEV IH SCH ×2 (13:51→20:27)
[2016-09-24] MEDS: METOPROLOL TARTRATE 25 MG TABLET PO SCH ×2 (13:52→20:31)
[2016-09-24] MEDS: ASPIRIN 81 MG TAB.CHEW PO SCH (13:52)
[2016-09-24] MEDS: CLOPIDOGREL BISULFATE 75 MG TABLET PO SCH (13:52)
[2016-09-24] MEDS: ISOSORBIDE MONONITRATE 30 MG TAB.SR.24H PO SCH (13:52)
[2016-09-24] MEDS: MULTIVITAMINS 1 CAP CAPSULE PO SCH (13:53)
[2016-09-24] MEDS: OMEGA-3 FATTY ACIDS 1 CAP CAPSULE PO SCH (13:53)
[2016-09-24] MEDS: SENNOSIDES 8.6 MG TABLET PO SCH (13:53)
[2016-09-24] MEDS: PIPERACILLIN SODIUM/TAZOBACTAM 3.375 GM in DEXTROSE 5 % IN WATER 100 ML IV SCH ×4 (14:49→22:09)
[2016-09-24] MEDS ORDERED: TAMSULOSIN HCL 0.4 MG CAP.SR.24H PO SCH (18:00)
[2016-09-24] MEDS: ROSUVASTATIN CALCIUM 20 MG TABLET PO SCH (20:27)
[2016-09-24] MEDS: BISACODYL 5 MG TABLET.DR PO SCH (20:28)
[2016-09-25] MEDS: NORMAL SALINE 1,000 ML IV PRN ×2 (00:36→08:42)
[2016-09-25] MEDS: HYDROmorphone HCL 1 MG/ML DISP.SYRIN IV PRN ×2 (02:12→07:12)
[2016-09-25] MEDS: oxyCODONE HCL/ACETAMINOPHEN 1 TAB TABLET PO PRN ×4 (04:13→21:35)
[2016-09-25] MEDS ORDERED: BISACODYL 5 MG TABLET.DR PO ONE (04:26)
[2016-09-25] MEDS: HEPARIN SODIUM,PORCINE 5,000 UNITS/ML VIAL SC SCH ×2 (05:33→17:52)
[2016-09-25] MEDS: PIPERACILLIN SODIUM/TAZOBACTAM 3.375 GM in DEXTROSE 5 % IN WATER 100 ML IV SCH ×6 (05:33→23:24)
[2016-09-25 06:05] LABS: Anion Gap 11.1 mmol/L (6.8-13.8); BUN/Creatinine Ratio 10.8 (9.0-21.6); CRP 3.4 mg/dL (0.0-0.9); Calcium * 8.2 mg/dL (7.9-10.9); Carbon Dioxide 23.6 mmol/L (24-32.6); Estimated Creat Clear 53.2; Potassium 3.7 mmol/L (3.4-4.6)
[2016-09-25] MEDS: PANTOPRAZOLE SODIUM 20 MG TABLET.DR PO SCH (07:16)
[2016-09-25] MEDS: MULTIVITAMINS 1 CAP CAPSULE PO SCH (08:43)
[2016-09-25] MEDS: OMEGA-3 FATTY ACIDS 1 CAP CAPSULE PO SCH (08:43)
[2016-09-25] MEDS: ISOSORBIDE MONONITRATE 30 MG TAB.SR.24H PO SCH (08:49)
[2016-09-25] MEDS: METOPROLOL TARTRATE 25 MG TABLET PO SCH ×2 (08:49→20:15)
[2016-09-25] MEDS: ASPIRIN 81 MG TAB.CHEW PO SCH (08:49)
[2016-09-25] MEDS: FLUTICASONE/SALMETEROL 14 PUFF DISK.W.DEV IH SCH ×2 (08:50→20:14)
[2016-09-25] MEDS: CLOPIDOGREL BISULFATE 75 MG TABLET PO SCH (08:50)
[2016-09-25] MEDS ORDERED: MAGNESIUM HYDROXIDE 30 ML UDC PO PRN (08:51)
[2016-09-25] MEDS ORDERED: POLYETHYLENE GLYCOL 3350 119 GM BTL PO PRN (08:51)
[2016-09-25] MEDS ORDERED: HYDROmorphone HCL 2 MG/ML VIAL IV ONE ×2 (08:57→10:30)
--- NOTE | 2016-09-25 09:33 | PN ---
Subjective - Date and Time Seen Date: 09/25/16 Time: 08:50 Subjective Narrative: Patient seen and examined at bedside. No acute issues overnight. Patient continues to have significant RLQ pain and also complains of back pain. He states that he feels very constipation and that if he could just have a BM he would feel much better. He was having difficulty urinating yesterday and was straight cathed X 1 but he states that he is not having any issues today and has already urinated on his own multiple times this AM without issues. Objective - Review of Systems Generalized/Overall Review: Reports: Weakness, Fatigue. Denies: Fever EENTM: Reports: No Symptoms Reported Respiratory: Reports: No Symptoms Reported Cardiac: Reports: No Symptoms Reported Abdominal: Reports: Nausea, Abdominal Pain, Constipation. Denies: Vomiting, Hematemesis, Melena, Bright blood from rectum Genitourinary Symptoms: Reports: No Symptoms Reported Musculoskeletal Complaints: Reports: Back Pain Neurological: Reports: No Symptoms Reported Skin: Reports: No Symptoms Reported Endocrine: Reports: No Symptoms Reported Misc: All systems neg except as marked - Vitals Vitals: Last Vital Signs Temp 36.7 C 09/25/16 07:53 Pulse 82 09/25/16 08:49 Resp 20 09/25/16 07:53 BP 141/70 09/25/16 08:49 Pulse Ox 94 09/25/16 07:53 - Abnormal Lab Findings Abnormal Lab Findings: Abnormal Lab Results 09/24/16 09/24/16 09/25/16 Range/Units 14:29 14:29 05:35 ESR 59 H 40 H (0-10) mm/hr Chloride (97-106) mmol/L Carbon Dioxide (24-32.6) mmol/L Random Glucose (70-110) mg/dL C-Reactive Prot, Quant 2.7 H (0.0-0.9) mg/dL 09/25/16 Range/Units 05:35 ESR (0-10) mm/hr Chloride 108 H (97-106) mmol/L Carbon Dioxide 23.6 L (24-32.6) mmol/L Random Glucose 111 H (70-110) mg/dL C-Reactive Prot, Quant 3.4 H (0.0-0.9) mg/dL - Exam Constitutional: Present: Alert, Oriented x3, Cooperative, Well developed, Mild distress - Appears uncomfortable secondary to abdominal and back pain, Elderly ENT Exam: Present: hearing grossly normal - with hearing aids in, moist mucous membranes Respiratory: Present: lungs clear - Diminished breath sounds bilaterally without crackles, rhonchi or wheezes appreciated, no respiratory distress, no accessory muscle use, expiration (prolonged) Cardiovascular/Chest: Present: regular rate, rhythm, no edema Abdomen: Present: soft, tender - Diffuse TTP with most severe area of tenderness located in the RLQ, other - Hyperactive bowel sounds. Absent: CVA tenderness Extremity: Present: normal inspection, no pedal edema Skin Exam: Present: normal color, warm/dry, no cyanosis Neurologic: Present: no motor/sensory deficits, alert, normal mood/affect, oriented x 3 Appearance: Present: appropriate appearance, appropriate insight, neat, no memory impairment Eye contact: Present: cooperative, good eye contact, normal speech Thoughts: Present: normal thought pattern, no apparent hallucination Assessment/Plan Plan Narrative: IMPRESSION & PLAN: Right Sided Colitis -CT of the abdomen and pelvis with both IV and oral contrast on 09/24/2016 revealed bowel wall thickening of the cecum and ascending colon. Results discussed with radiologist Dr. Bettencourt. CT also reviewed and discussed with general surgeon, Dr. Luo. We discussed whether or not the patient would benefit from colonoscopy with biopsies during his admission; however, this will not change her plan of care and thus we will hold off on doing a colonoscopy for now. The patient fails to improve or has clinical decline, Dr. Luo will be formally consulted at that time and we will re-entertain the idea of a possible colonoscopy with biopsies. -Patient previously treated with oral ciprofloxacin and Flagyl 14 days in July 2016 -Blood cultures ordered -Trend inflammatory markers and repeat ESR and CRP on Friday -Continue IV Zosyn with plans to continue IV antibiotics for at least the next 2-3 days. Monitor clinical course and hopefully patient can be transitioned to oral antibiotics and discharged home before the weekend. -Continue PRN pain and nausea meds -Stool occult blood testing pending -Stool culture pending Unintentional Weight Loss -Since 03/21/2016 the patient has lost approximately 20 pounds, 10 pounds of which he has lost the last 3 weeks -Etiology likely multifactorial and due to decreased caloric intake secondary to abdominal pain +/- GI loss. -Prostate cancer with a markedly elevated PSA also possibly contributing to weight loss -Daily standing weights T12 Compression Fracture with associated fracture of the right 12th rib at the posterior aspect -Incidental finding on abdominal/pelvis CT -Patient denies any recent falls/injury -Concern for possible pathologic fracture. I am very concerned the patient likely has prostate cancer with bony mets. MRI thoracic spine with and without contrast ordered for tomorrow AM. -Start intranasal calcitonin History of Prostate Cancer -I unfortunately do not have complete records regarding the patient's history of prostate cancer. Per the records I do have, the patient apparently had a prostate biopsy on 07/06/2014 and it appears this was done at [facility]. PSA checked on admission and was markedly elevated at 788. After further discussion with the patient, he admits that he did not have appropriate follow- up with urologist, Dr. Queen, secondary to his becoming ill and Ed had somewhat neglected his own health to help take care of her. -I will either asked Dr. Queen to see the patient on Friday when he is here for clinic or I will just have him follow-up as an outpatient for further evaluation and management Urinary Retention - Improved -UA unremarkable -Etiology likely secondary to enlarged prostate in combination with acute intrabdominal inflammation from colitis -Straight cath PRN CHRONIC STABLE MEDICAL CONDITIONS: CAD with history of [place]: Continue home medications - Aspirin, Plavix, atorvastatin and metoprolol tartrate (patient is on tartrate, not succinate as originally documented in the patient's home medication list) Hyperlipidemia: Continue home statin COPD: Continue home medications - Symbicort GERD: Continue home PPI Anxiety and Depression: Stable. Continue valium PRN. Tobacco Abuse: Nicotine patch PRN. Chronic Constipation: Continue bowel regimen as needed. VTE ppx: Heparin 5000 Units SubQ Q12H, MARCIANO perea, SCDs - Problems/Diagnosis (1) Weight loss, abnormal Problem: Acute (2) Right sided colitis Problem: Acute (3) Compression fracture of T12 vertebra Problem: Acute Qualifiers: Encounter type: initial encounter Fracture type: closed Qualified Code(s) : S22.080A - Wedge compression fracture of T11-T12 vertebra, initial encounter for closed fracture (4) Right rib fracture Problem: Acute Qualifiers: Encounter type: initial encounter Rib fracture type: single rib Fracture type: closed Qualified Code(s): S22.31XA - Fracture of one rib, right side, initial encounter for closed fracture (5) Weight loss, non-intentional Problem: Acute (6) Abdominal pain Problem: Acute (7) RLQ abdominal pain Problem: Acute (8) CAD (coronary artery disease) Problem: Chronic (9) Hyperlipidemia Problem: Chronic (10) COPD (chronic obstructive pulmonary disease) Problem: Chronic (11) GERD (gastroesophageal reflux disease) Problem: Chronic (12) History of prostate cancer Problem: Chronic (13) Anxiety and depression Problem: Chronic (14) Tobacco abuse Problem: Chronic (15) Prostate cancer Problem: Acute
[2016-09-25] MEDS: SENNOSIDES/DOCUSATE SODIUM 1 TAB TABLET PO SCH ×3 (10:35→17:51)
[2016-09-25] MEDS: SENNOSIDES 8.6 MG TABLET PO SCH (10:37)
[2016-09-25] MEDS: CALCITONIN,SALMON,SYNTHETIC 30 SPRAY BTL NS SCH (11:28)
[2016-09-25] MEDS: ROSUVASTATIN CALCIUM 20 MG TABLET PO SCH (20:15)
[2016-09-25] MEDS: BISACODYL 5 MG TABLET.DR PO SCH (20:15)
[2016-09-26] MEDS: oxyCODONE HCL/ACETAMINOPHEN 1 TAB TABLET PO PRN ×5 (03:25→20:57)
[2016-09-26] MEDS: HEPARIN SODIUM,PORCINE 5,000 UNITS/ML VIAL SC SCH ×2 (05:46→17:33)
[2016-09-26] MEDS: PIPERACILLIN SODIUM/TAZOBACTAM 3.375 GM in DEXTROSE 5 % IN WATER 100 ML IV SCH ×6 (05:46→22:40)
[2016-09-26] MEDS: PANTOPRAZOLE SODIUM 20 MG TABLET.DR PO SCH (07:22)
[2016-09-26] MEDS: ISOSORBIDE MONONITRATE 30 MG TAB.SR.24H PO SCH (08:34)
[2016-09-26] MEDS: MULTIVITAMINS 1 CAP CAPSULE PO SCH (08:35)
[2016-09-26] MEDS: SENNOSIDES/DOCUSATE SODIUM 1 TAB TABLET PO SCH ×3 (08:35→16:06)
[2016-09-26] MEDS: SENNOSIDES 8.6 MG TABLET PO SCH (08:35)
[2016-09-26] MEDS: ASPIRIN 81 MG TAB.CHEW PO SCH (08:35)
[2016-09-26] MEDS: METOPROLOL TARTRATE 25 MG TABLET PO SCH ×2 (08:35→20:58)
[2016-09-26] MEDS: CLOPIDOGREL BISULFATE 75 MG TABLET PO SCH (08:35)
[2016-09-26] MEDS: OMEGA-3 FATTY ACIDS 1 CAP CAPSULE PO SCH (08:35)
[2016-09-26] MEDS: CALCITONIN,SALMON,SYNTHETIC 30 SPRAY BTL NS SCH (08:37)
[2016-09-26] MEDS: FLUTICASONE/SALMETEROL 14 PUFF DISK.W.DEV IH SCH ×2 (08:37→20:59)
[2016-09-26] MEDS: HYDROmorphone HCL 1 MG/ML DISP.SYRIN IV PRN ×3 (09:05→18:45)
[2016-09-26] MEDS ORDERED: HYDROmorphone HCL 1 MG/ML DISP.SYRIN IV ONE (09:07)
--- NOTE | 2016-09-26 10:04 | PN ---
Subjective - Date and Time Seen Date: 09/26/16 Time: 08:50 Subjective Narrative: Patient seen and examined at bedside. No acute issues overnight. Patient continues to have significant RLQ pain and back pain. He states that he still feels constipated but is not having any significant BMs other than some occasional liquid stool. He denies any ongoing issues with difficulty urinating. Objective - Review of Systems Generalized/Overall Review: Reports: Weakness, Fatigue, Weight loss. Denies: Fever EENTM: Reports: No Symptoms Reported Respiratory: Reports: No Symptoms Reported Cardiac: Reports: No Symptoms Reported Abdominal: Reports: Nausea, Abdominal Pain, Constipation. Denies: Vomiting, Hematemesis, Diarrhea, Melena, Bright blood from rectum Genitourinary Symptoms: Reports: No Symptoms Reported. Denies: Retention Musculoskeletal Complaints: Reports: Back Pain Neurological: Reports: No Symptoms Reported Skin: Reports: No Symptoms Reported Endocrine: Reports: No Symptoms Reported Misc: All systems neg except as marked - Vitals Vitals: Last Vital Signs Temp 37.4 C 09/26/16 06:48 Pulse 84 09/26/16 08:35 Resp 18 09/26/16 06:48 BP 133/69 09/26/16 08:35 Pulse Ox 96 09/26/16 06:48 - Exam Constitutional: Present: Alert, Oriented x3, Cooperative, Well developed, Mild distress - Appears uncomfortable secondary to abdominal and back pain, Elderly ENT Exam: Present: hearing grossly normal - With hearing aids in, moist mucous membranes Respiratory: Present: no respiratory distress, no accessory muscle use, expiration (prolonged), other - Diminished breath sounds bilaterally without crackles, rhonchi or wheezes appreciated Cardiovascular/Chest: Present: regular rate, rhythm, no edema Abdomen: Present: soft, nondistended, tender - Diffuse TTP with most severe area of tenderness located in the RLQ. Absent: rigidity Extremity: Present: normal inspection, no pedal edema, other - TTP over lower thoracic and upper lumbar spine Skin Exam: Present: warm/dry, no cyanosis Neurologic: Present: alert, normal mood/affect, oriented x 3 Appearance: Present: appropriate appearance, appropriate insight, neat, no memory impairment Eye contact: Present: cooperative, good eye contact, normal speech Thoughts: Present: normal thought pattern, no apparent hallucination Assessment/Plan Plan Narrative: IMPRESSION & PLAN: Right Sided Colitis -CT of the abdomen and pelvis with both IV and oral contrast on 09/24/2016 revealed bowel wall thickening of the cecum and ascending colon. Results discussed with radiologist Dr. Bettencourt. CT also reviewed and discussed with general surgeon, Dr. Luo. We discussed whether or not the patient would benefit from colonoscopy with biopsies during his admission; however, this will not change her plan of care and thus we will hold off on doing a colonoscopy for now. The patient fails to improve or has clinical decline, Dr. Luo will be formally consulted at that time and we will re-entertain the idea of a possible colonoscopy with biopsies. -Patient previously treated with oral ciprofloxacin and Flagyl 14 days in July 2016 -Blood cultures NGTD -Trend inflammatory markers and repeat ESR and CRP on Friday -Continue IV Zosyn with plans to continue IV antibiotics for at least the next 2 days. Monitor clinical course and hopefully patient can be transitioned to oral antibiotics and discharged home within the next 1-2 days. -Continue PRN pain and nausea meds -Stool occult blood testing pending -Stool culture pending Unintentional Weight Loss -Since 03/21/2016 the patient has lost approximately 20 pounds, 10 pounds of which he has lost the last 3 weeks -Etiology likely multifactorial and due to decreased caloric intake secondary to abdominal pain +/- GI loss. -Prostate cancer with a markedly elevated PSA also possibly contributing to weight loss -Daily standing weights T12 Compression Fracture with associated fracture of the right 12th rib at the posterior aspect -Incidental finding on abdominal/pelvis CT -Patient denies any recent falls/injury -Concern for possible pathologic fracture. I am very concerned the patient likely has prostate cancer with bony mets. MRI thoracic spine with and without contrast ordered for this morning. -Start intranasal calcitonin History of Prostate Cancer -I unfortunately do not have complete records regarding the patient's history of prostate cancer. Per the records I do have, the patient apparently had a prostate biopsy on 07/06/2014 and it appears this was done at [facility]. PSA checked on admission and was markedly elevated at 788. After further discussion with the patient, he admits that he did not have appropriate follow- up with urologist, Dr. Queen, secondary to his becoming ill and Ed had somewhat neglected his own health to help take care of her. -I will either asked Dr. Queen to see the patient on Friday when he is here for clinic or I will just have him follow-up as an outpatient for further evaluation and management Urinary Retention - Improved -UA unremarkable -Etiology likely secondary to enlarged prostate in combination with acute intrabdominal inflammation from colitis -Straight cath PRN CHRONIC STABLE MEDICAL CONDITIONS: CAD with history of [place]: Continue home medications - Aspirin, Plavix, atorvastatin and metoprolol tartrate (patient is on tartrate, not succinate as originally documented in the patient's home medication list) Hyperlipidemia: Continue home statin COPD: Continue home medications - Symbicort GERD: Continue home PPI Anxiety and Depression: Stable. Continue valium PRN. Tobacco Abuse: Nicotine patch PRN. Chronic Constipation: Continue bowel regimen as needed. VTE ppx: Heparin 5000 Units SubQ Q12H, [place] - Problems/Diagnosis (1) Weight loss, abnormal Problem: Acute (2) Right sided colitis Problem: Acute (3) Compression fracture of T12 vertebra Problem: Acute Qualifiers: Encounter type: initial encounter Fracture type: closed Qualified Code(s) : S22.080A - Wedge compression fracture of T11-T12 vertebra, initial encounter for closed fracture (4) Right rib fracture Problem: Acute Qualifiers: Encounter type: initial encounter Rib fracture type: single rib Fracture type: closed Qualified Code(s): S22.31XA - Fracture of one rib, right side, initial encounter for closed fracture (5) Weight loss, non-intentional Problem: Acute (6) Abdominal pain Problem: Acute (7) RLQ abdominal pain Problem: Acute (8) CAD (coronary artery disease) Problem: Chronic (9) Hyperlipidemia Problem: Chronic (10) COPD (chronic obstructive pulmonary disease) Problem: Chronic (11) GERD (gastroesophageal reflux disease) Problem: Chronic (12) History of prostate cancer Problem: Chronic (13) Anxiety and depression Problem: Chronic (14) Tobacco abuse Problem: Chronic (15) Prostate cancer Problem: Acute
[2016-09-26] MEDS: BICALUTAMIDE 50 MG TABLET PO SCH (14:50)
[2016-09-26] MEDS: ROSUVASTATIN CALCIUM 20 MG TABLET PO SCH (20:58)
[2016-09-26] MEDS: BISACODYL 5 MG TABLET.DR PO SCH (20:59)
[2016-09-27] MEDS: HYDROmorphone HCL 1 MG/ML DISP.SYRIN IV PRN ×8 (00:24→22:55)
[2016-09-27] MEDS: oxyCODONE HCL/ACETAMINOPHEN 1 TAB TABLET PO PRN ×5 (02:43→19:39)
[2016-09-27] MEDS: PIPERACILLIN SODIUM/TAZOBACTAM 3.375 GM in DEXTROSE 5 % IN WATER 100 ML IV SCH ×6 (05:32→21:58)
[2016-09-27] MEDS: HEPARIN SODIUM,PORCINE 5,000 UNITS/ML VIAL SC SCH ×2 (05:33→17:46)
[2016-09-27] MEDS: PANTOPRAZOLE SODIUM 20 MG TABLET.DR PO SCH (06:56)
[2016-09-27] MEDS: SENNOSIDES 8.6 MG TABLET PO SCH (08:34)
[2016-09-27] MEDS: ISOSORBIDE MONONITRATE 30 MG TAB.SR.24H PO SCH (08:34)
[2016-09-27] MEDS: MULTIVITAMINS 1 CAP CAPSULE PO SCH (08:34)
[2016-09-27] MEDS: ASPIRIN 81 MG TAB.CHEW PO SCH (08:35)
[2016-09-27] MEDS: BICALUTAMIDE 50 MG TABLET PO SCH (08:35)
[2016-09-27] MEDS: CLOPIDOGREL BISULFATE 75 MG TABLET PO SCH (08:35)
[2016-09-27] MEDS: METOPROLOL TARTRATE 25 MG TABLET PO SCH ×2 (08:35→20:38)
[2016-09-27] MEDS: FLUTICASONE/SALMETEROL 14 PUFF DISK.W.DEV IH SCH ×2 (08:36→20:37)
[2016-09-27] MEDS: OMEGA-3 FATTY ACIDS 1 CAP CAPSULE PO SCH (08:36)
[2016-09-27] MEDS: SENNOSIDES/DOCUSATE SODIUM 1 TAB TABLET PO SCH ×3 (08:36→17:44)
[2016-09-27] MEDS: CALCITONIN,SALMON,SYNTHETIC 30 SPRAY BTL NS SCH ×2 (08:38→08:39)
[2016-09-27] MEDS: ROSUVASTATIN CALCIUM 20 MG TABLET PO SCH (20:38)
[2016-09-27] MEDS: BISACODYL 5 MG TABLET.DR PO SCH (20:38)
[2016-09-28] MEDS: oxyCODONE HCL/ACETAMINOPHEN 1 TAB TABLET PO PRN ×5 (00:56→18:17)
[2016-09-28] MEDS: HYDROmorphone HCL 1 MG/ML DISP.SYRIN IV PRN ×7 (01:59→19:01)
[2016-09-28] MEDS: HEPARIN SODIUM,PORCINE 5,000 UNITS/ML VIAL SC SCH ×2 (05:38→18:24)
[2016-09-28] MEDS: PIPERACILLIN SODIUM/TAZOBACTAM 3.375 GM in DEXTROSE 5 % IN WATER 100 ML IV SCH ×4 (05:38→14:31)
[2016-09-28] MEDS: PANTOPRAZOLE SODIUM 20 MG TABLET.DR PO SCH (06:42)
[2016-09-28] MEDS: FLUTICASONE/SALMETEROL 14 PUFF DISK.W.DEV IH SCH (08:26)
[2016-09-28] MEDS: SENNOSIDES 8.6 MG TABLET PO SCH (08:27)
[2016-09-28] MEDS: ISOSORBIDE MONONITRATE 30 MG TAB.SR.24H PO SCH (08:27)
[2016-09-28] MEDS: CLOPIDOGREL BISULFATE 75 MG TABLET PO SCH (08:28)
[2016-09-28] MEDS: BICALUTAMIDE 50 MG TABLET PO SCH (08:28)
[2016-09-28] MEDS: MULTIVITAMINS 1 CAP CAPSULE PO SCH (08:28)
[2016-09-28] MEDS: METOPROLOL TARTRATE 25 MG TABLET PO SCH (08:28)
[2016-09-28] MEDS: OMEGA-3 FATTY ACIDS 1 CAP CAPSULE PO SCH (08:29)
[2016-09-28] MEDS: ASPIRIN 81 MG TAB.CHEW PO SCH (08:29)
[2016-09-28] MEDS: CALCITONIN,SALMON,SYNTHETIC 30 SPRAY BTL NS SCH (08:29)
[2016-09-28] MEDS: SENNOSIDES/DOCUSATE SODIUM 1 TAB TABLET PO SCH ×3 (09:13→18:17)
--- NOTE | 2016-09-28 12:09 | PN ---
<Laura Nixon - Last Filed: 10/21/16 16:27> Subjective - Date and Time Seen Time: 21:09 Subjective Narrative: ongoing back pain. awaiting bed at [facility]. pain improving with medications. Objective - Review of Systems Generalized/Overall Review: Reports: No Symptoms Reported EENTM: Reports: No Symptoms Reported Respiratory: Reports: No Symptoms Reported Cardiac: Reports: No Symptoms Reported Abdominal: Reports: Abdominal Pain Genitourinary Symptoms: Reports: Frequency Musculoskeletal Complaints: Reports: Back Pain Neurological: Reports: No Symptoms Reported Skin: Reports: No Symptoms Reported Endocrine: Reports: No Symptoms Reported Misc: All systems neg except as marked - Vitals Vitals: Last Vital Signs Temp 37.9 C H 09/28/16 15:20 Pulse 69 09/28/16 15:20 Resp 18 09/28/16 15:20 BP 123/63 09/28/16 15:20 Pulse Ox 92 09/28/16 15:20 - Exam Constitutional: Present: Alert, Cooperative, No distress ENT Exam: Present: hearing grossly normal Neck: Present: full range of motion, supple Breasts: Present: Exam deferred Respiratory: Present: lungs clear, normal breath sounds Cardiovascular/Chest: Present: normal peripheral pulses, regular rate, rhythm Abdomen: Present: Normal bowel sounds, soft, nondistended /Rectal: Present: Exam deferred Extremity: Present: non-tender, normal inspection Skin Exam: Present: normal color, warm/dry, no cyanosis Assessment/Plan Plan Narrative: Right Sided Colitis -CT of the abdomen and pelvis 09/24/2016 revealed bowel wall thickening of the cecum and ascending colon. - No colonoscopy for now. -Patient previously treated with oral ciprofloxacin and Flagyl 14 days in July 2016 -Blood cultures negative -Continue IV Zosyn -Continue PRN pain meds and nausea meds -Stool occult blood testing pending -Stool culture pending Unintentional Weight Loss -Since 03/21/2016 the patient has lost approximately 20 pounds, 10 pounds of which he has lost the last 3 weeks -Etiology likely multifactorial -Prostate cancer with a markedly elevated PSA also possibly contributing to weight loss -Daily standing weights T12 Compression Fracture with associated fracture of the right 12th rib at the posterior aspect -Incidental finding on abdominal/pelvis CT -Patient denies any recent falls/injury -Concern for possible pathologic fracture. MRI shows possible marixa equina - awaiting [place] [facility] [place] - Has been started on Casodex 50 mg daily History of Prostate Cancer - follow up with Dr. Queen outpatient. Urinary Retention - Improved -UA unremarkable -Straight cath PRN CHRONIC STABLE MEDICAL CONDITIONS: CAD with history of [place]: Continue home medications - Aspirin, Plavix, atorvastatin and metoprolol tartrate Hyperlipidemia: Continue home statin COPD: Continue home medications - Symbicort GERD: Continue home PPI Anxiety and Depression: Stable. Continue valium PRN. Tobacco Abuse: Nicotine patch PRN. Chronic Constipation: Continue bowel regimen as needed. VTE ppx: Heparin 5000 Units SubQ Q12H, MARCIANO perea, SCDs - Problems/Diagnosis (1) Abdominal pain Problem: Acute (2) Compression fracture of T12 vertebra Problem: Acute QualifierTitle: Encounter type: initial encounter Fracture type: closed Qualified Code(s): S22.080A - Wedge compression fracture of T11-T12 vertebra, initial encounter for closed fracture (3) Prostate cancer Problem: Acute (4) RLQ abdominal pain Problem: Acute (5) Right rib fracture Problem: Acute QualifierTitle: Encounter type: initial encounter Rib fracture type: single rib Fracture type: closed Qualified Code(s): S22.31XA - Fracture of one rib, right side, initial encounter for closed fracture (6) Right sided colitis Problem: Acute (7) Weight loss, abnormal Problem: Acute (8) Weight loss, non-intentional Problem: Acute (9) Anxiety and depression Problem: Chronic (10) CAD (coronary artery disease) Problem: Chronic (11) COPD (chronic obstructive pulmonary disease) Problem: Chronic (12) GERD (gastroesophageal reflux disease) Problem: Chronic (13) History of prostate cancer Problem: Chronic (14) Hyperlipidemia Problem: Chronic (15) Tobacco abuse Problem: Chronic <Denzel Copeland - Last Filed: 10/29/16 08:57> Subjective - Date and Time Seen Date: 09/27/16 Objective - Vitals Vitals: Last Vital Signs Temp 37 C 09/28/16 11:26 Pulse 82 09/28/16 11:26 Resp 18 09/28/16 11:26 BP 120/74 09/28/16 11:26 Pulse Ox 94 09/28/16 11:26 Assessment/Plan Plan Narrative: Patient was seen and evaluated with Hospitalist, Laura Nixon. Agree with narrative and plan. Awaiting transfer for possible cauda equina.
[2016-09-28 15:22] VITALS: BP 123/63
[2016-09-28] MEDS ORDERED: FLUTICASONE/SALMETEROL 14 PUFF DISK.W.DEV IH SCH (21:00)
--- NOTE | 2016-09-28 22:27 | DS ---
Transfer Discharge Summary - Diagnosis(s)/Problems (1) Abdominal pain Problem: Acute (2) Compression fracture of T12 vertebra Problem: Acute (3) Prostate cancer Problem: Acute (4) RLQ abdominal pain Problem: Acute (5) Right rib fracture Problem: Acute (6) Right sided colitis Problem: Acute (7) Weight loss, abnormal Problem: Acute (8) Weight loss, non-intentional Problem: Acute (9) Anxiety and depression Problem: Chronic (10) CAD (coronary artery disease) Problem: Chronic (11) COPD (chronic obstructive pulmonary disease) Problem: Chronic (12) GERD (gastroesophageal reflux disease) Problem: Chronic (13) History of prostate cancer Problem: Chronic (14) Hyperlipidemia Problem: Chronic (15) Tobacco abuse Problem: Chronic - Course Description of Stay: The patient is a 75-year-old male who presented to Dr. Cleveland's clinic and c/o RLQ abdominal pain. The patient has been struggling with abdominal pain and issues related to constipation for at least the past 3 months but the abdominal pain has continued to get worse, especially over the past few days to weeks. The patient does have a history of chronic constipation for 5+ years. The patient states that he feels very constipated and backed-up despite only passing liquid stools for the last few days. The patient also has been experiencing unintentional weight loss. Since 03/21/2016 the patient has lost approximately 20 pounds, 10 pounds of which he has lost the last 3 weeks. The patient's most recent colonoscopy per patient was in [address] of the abdomen and pelvis done on 09/24/2016 revealed bowel wall thickening of the cecum and ascending colon. Decided to hold off on doing a colonoscopy for now. The patient fails to improve or has clinical decline, Dr. Luo will be formally consulted at that time and we will re-entertain the idea of a possible colonoscopy with biopsies. patient was started on iv zosyn. MRI of the thoracic spine was done. MRI shows a likely pathologic compression fracture of T12 with posterior retropulsion of the posterior cortex which contacts the conus medullaris, concern for cauda equina syndrome. There are multiple other lesions of the thoracic spine and lumbar which are also likely metastatic bony lesions. Given markedly elevated PSA, it is most likely that the patient has metastatic prostate cancer. Case discussed with Dr. Queen. Recommend the best plan of care would be to transfer the patient to a facility where neurosurgery is available. Dr. Queen also recommended starting the patient on an androgen receptor aureliano; the patient was started on Casodex 50mg PO daily. Transfer arrangements have been initiated although bed placement was not available until 09/28/16. Patient transferred to [facility] via EMS. Procedures Performed: see notes below Procedures: CT of abdomen and MRI of thoracic spine. - Medications Medications: Active Medications Discontinued Medications Aspirin (Aspirin Chewable) 81 mg PO DAILY [facility] Stop: 10/24/16 09:01 Last Admin: 09/28/16 08:29 Dose: 81 mg Atorvastatin Calcium (Lipitor) 40 mg PO HS [facility] Stop: 10/23/16 21:01 Last Admin: 09/23/16 20:47 Dose: Not Given Bicalutamide (Casodex) 50 mg PO DAILY [facility] Stop: 10/26/16 13:46 Last Admin: 09/28/16 08:28 Dose: 50 mg Bisacodyl (Dulcolax) 5 mg PO HS [facility] Stop: 10/23/16 21:01 Last Admin: 09/27/16 20:38 Dose: 5 mg Bisacodyl (Dulcolax) 5 mg PO ONCE ONE Stop: 09/25/16 04:27 Last Admin: 09/25/16 04:49 Dose: 5 mg Calcitonin [place] (Miacalcin Nasal [place]) 1 spray NS DAILY [facility] Stop: 10/25/16 11:16 Last Admin: 09/28/16 08:29 Dose: 1 spray Clopidogrel Bisulfate (Plavix) 75 mg PO DAILY [facility] Stop: 10/24/16 09:01 Last Admin: 09/28/16 08:28 Dose: 75 mg Diatrizoate Meglum/Diatrizoate Sod (Gastrografin Solution) 60 ml PO ONCE ONE Stop: 09/24/16 08:56 Last Admin: 09/24/16 09:15 Dose: 60 ml Heparin Sodium (Porcine) (Heparin Sodium) 5,000 units SC Q12H [facility] Stop: 10/23/16 18:01 Last Admin: 09/28/16 18:24 Dose: 5,000 units Hydromorphone HCl (Dilaudid) 1 mg IV Q2H PRN PRN Reason: Severe Pain Stop: 10/23/16 15:58 Last Admin: 09/28/16 19:01 Dose: 1 mg Hydromorphone HCl (Dilaudid) 2 mg IV ONCE ONE Stop: 09/25/16 08:58 Last Admin: 09/25/16 10:32 Dose: 2 mg Hydromorphone HCl (Dilaudid) 2 mg IV ONCE ONE Stop: 09/25/16 10:31 Last Admin: 09/25/16 10:35 Dose: Not Given Hydromorphone HCl (Dilaudid) 1 mg IV ONCE ONE Stop: 09/26/16 09:08 Last Admin: 09/26/16 10:30 Dose: Not Given Sodium Chloride (Sodium Chloride 0.9%) 1,000 mls @ 125 mls/hr IV .Q8H PRN PRN Reason: HYDRATION Stop: 10/23/16 15:58 Last Admin: 09/25/16 08:42 Dose: 125 mls/hr Piperacillin Sod/Tazobactam (Sod 3.375 gm/ Dextrose/Water) 100 mls @ 25 mls/hr IV Q8H JACOB PRN Reason: Protocol Stop: 10/24/16 14:31 Last Admin: 09/28/16 14:31 Dose: 25 mls/hr Isosorbide Mononitrate (Imdur) 30 mg PO DAILY [facility] Stop: 10/24/16 09:01 Last Admin: 09/28/16 08:27 Dose: 30 mg Magnesium Hydroxide (Milk Of Magnesia) 30 ml PO DAILY PRN PRN Reason: Constipation Stop: 10/25/16 08:52 Last Admin: 09/25/16 10:40 Dose: 30 ml Metoprolol Succinate (Toprol Xl) 25 mg PO BID [facility] Stop: 10/23/16 21:01 Last Admin: 09/23/16 22:06 Dose: Not Given Metoprolol Succinate (Toprol Xl) 25 mg PO BID [facility] Stop: 10/23/16 21:01 Last Admin: 09/23/16 20:56 Dose: 25 mg Metoprolol Tartrate (Lopressor) 25 mg PO BID [facility] Stop: 10/24/16 09:01 Last Admin: 09/28/16 08:28 Dose: 25 mg Ugabc-2-Lxtg Ethyl Esters (Jane [place]-3 1000 Mg) 1 cap PO DAILY [facility] Stop: 10/24/16 09:01 Last Admin: 09/28/16 08:29 Dose: 1 cap Ondansetron HCl (Zofran) 4 mg IV Q4H PRN PRN Reason: Nausea And Vomiting Stop: 10/23/16 15:58 Last Admin: 09/24/16 08:58 Dose: 4 mg Ondansetron HCl (Zofran) 4 mg IV ONCE ONE Stop: 09/24/16 08:59 Last Admin: 09/24/16 09:59 Dose: 4 mg Oxycodone/Acetaminophen (Percocet 5 Mg/325 Mg) 1 tab PO Q4H PRN PRN Reason: Moderate Pain Stop: 10/23/16 15:58 Last Admin: 09/25/16 08:47 Dose: 1 tab Oxycodone/Acetaminophen (Percocet 5 Mg/325 Mg) 2 tab PO Q4H PRN PRN Reason: Severe Pain Stop: 10/23/16 16:00 Last Admin: 09/28/16 18:17 Dose: 2 tab Pantoprazole Sodium (Protonix) 20 mg PO DAILY@0700 [facility] Stop: 10/24/16 07:01 Last Admin: 09/28/16 06:42 Dose: 20 mg Polyethylene Glycol (Miralax) 17 gm PO BID PRN PRN Reason: Constipation Stop: 10/25/16 09:01 Last Admin: 09/25/16 10:42 Dose: 17 gm Rosuvastatin Calcium (Crestor) 20 mg PO HS [facility] Stop: 10/24/16 21:01 Last Admin: 09/27/16 20:38 Dose: 20 mg Fluticasone/Salmeterol (Advair 500-50 Diskus) 1 puff IH BID [facility] Stop: 10/23/16 21:01 Last Admin: 09/28/16 08:26 Dose: 1 puff Senna (Senokot) 17.2 mg PO DAILY [facility] Stop: 10/24/16 09:01 Last Admin: 09/28/16 08:27 Dose: 17.2 mg Senna/Docusate Sodium (Senokot-S) 2 tab PO TID [facility] Stop: 10/25/16 09:01 Last Admin: 09/28/16 18:17 Dose: 2 tab Tamsulosin HCl (Flomax) 0.4 mg PO DAILY@1800 [facility] Stop: 10/24/16 18:01 Last Admin: 08/01/17 17:00 Dose: 0.4 mg - Disposition Disposition: [facility] Condition: Stable Discharge Date: 09/28/16 Discharge Time: 20:15
--- NOTE | 2016-10-21 16:22 | PN ---
Subjective - Date and Time Seen Date: 09/27/16 - Late entry - missed progress note Time: 21:07 Subjective Narrative: still with significant back pain but controlled with medications. awaiting transfer to [facility] Objective - Review of Systems Generalized/Overall Review: Reports: No Symptoms Reported EENTM: Reports: No Symptoms Reported Respiratory: Reports: No Symptoms Reported Cardiac: Reports: No Symptoms Reported Abdominal: Reports: No Symptoms Reported Genitourinary Symptoms: Reports: Frequency, Nocturia Musculoskeletal Complaints: Reports: Back Pain Neurological: Reports: No Symptoms Reported Skin: Reports: No Symptoms Reported Endocrine: Reports: No Symptoms Reported Misc: All systems neg except as marked - Vitals Vitals: Last Vital Signs Temp 37.9 C H 09/28/16 15:20 Pulse 69 09/28/16 15:20 Resp 18 09/28/16 15:20 BP 123/63 09/28/16 15:20 Pulse Ox 92 09/28/16 15:20 - Exam Constitutional: Present: Alert, Cooperative, No distress ENT Exam: Present: hearing grossly normal Neck: Present: supple Breasts: Present: Exam deferred Respiratory: Present: chest non-tender, normal breath sounds Cardiovascular/Chest: Present: normal peripheral pulses, regular rate, rhythm Abdomen: Present: soft, nondistended Extremity: Present: non-tender, normal inspection Skin Exam: Present: normal color, warm/dry, no cyanosis Assessment/Plan Plan Narrative: Right Sided Colitis -CT of the abdomen and pelvis 09/24/2016 revealed bowel wall thickening of the cecum and ascending colon. - No colonoscopy for now. -Patient previously treated with oral ciprofloxacin and Flagyl 14 days in July 2016 -Blood cultures negative -Continue IV Zosyn until transferred to [facility] -Continue PRN pain meds and nausea meds Unintentional Weight Loss -Since 03/21/2016 the patient has lost approximately 20 pounds, 10 pounds of which he has lost the last 3 weeks -Etiology likely multifactorial -Prostate cancer with a markedly elevated PSA also possibly contributing to weight loss -Daily standing weights T12 Compression Fracture with associated fracture of the right 12th rib at the posterior aspect -Incidental finding on abdominal/pelvis CT -Patient denies any recent falls/injury -Concern for possible pathologic fracture. MRI shows possible marixa equina - awaiting transfer to [facility]. - Has been started on Casodex 50 mg daily History of Prostate Cancer - follow up with Dr. Queen outpatient. Urinary Retention - Improved -UA unremarkable -Straight cath PRN CHRONIC STABLE MEDICAL CONDITIONS: CAD with history of SC: Continue home medications - Aspirin, Plavix, atorvastatin and metoprolol tartrate Hyperlipidemia: Continue home statin COPD: Continue home medications - Symbicort GERD: Continue home PPI Anxiety and Depression: Stable. Continue valium PRN. Tobacco Abuse: Nicotine patch PRN. Chronic Constipation: Continue bowel regimen as needed. VTE ppx: Heparin 5000 Units SubQ Q12H, MARCIANO perea, SCDs Awaiting bed at [facility] due to possible marixa equina from T12 fracture. - Problems/Diagnosis (1) Abdominal pain Problem: Acute (2) Compression fracture of T12 vertebra Problem: Acute Qualifiers: Encounter type: initial encounter Fracture type: closed Qualified Code(s) : S22.080A - Wedge compression fracture of T11-T12 vertebra, initial encounter for closed fracture (3) Prostate cancer Problem: Acute (4) RLQ abdominal pain Problem: Acute (5) Right rib fracture Problem: Acute Qualifiers: Encounter type: initial encounter Rib fracture type: single rib Fracture type: closed Qualified Code(s): S22.31XA - Fracture of one rib, right side, initial encounter for closed fracture (6) Right sided colitis Problem: Acute (7) Weight loss, abnormal Problem: Acute (8) Weight loss, non-intentional Problem: Acute (9) Anxiety and depression Problem: Chronic (10) CAD (coronary artery disease) Problem: Chronic (11) COPD (chronic obstructive pulmonary disease) Problem: Chronic (12) GERD (gastroesophageal reflux disease) Problem: Chronic (13) History of prostate cancer Problem: Chronic (14) Hyperlipidemia Problem: Chronic (15) Tobacco abuse Problem: Chronic
== END 2016-09-28 20:15 | disposition short-term general hospital (02) | DRG 392 ==
LOC: RAD 15:18 → MS 15:55 → OBSVTOIN 09-24 14:26
PROVIDERS: ADMIT Internal Medicine; ATTEND Internal Medicine
DX: K52.9 Noninfective gastroenteritis and colitis, unspecified (principal); M48.54XA Collapsed vertebra, not elsewhere classified, thoracic region, initial encounter for fracture; C79.51 Secondary malignant neoplasm of bone; G83.4 Cauda equina syndrome; R63.4 Abnormal weight loss; C61 Malignant neoplasm of prostate; I25.10 Atherosclerotic heart disease of native coronary artery without angina pectoris; J44.9 Chronic obstructive pulmonary disease, unspecified; J45.909 Unspecified asthma, uncomplicated; F17.210 Nicotine dependence, cigarettes, uncomplicated; E78.5 Hyperlipidemia, unspecified; Z68.21 Body mass index [BMI] 21.0-21.9, adult; I25.2 Old myocardial infarction
CPT/HCPCS: 36415; 72157; 74020; 74177; 80048; 80076; 81001; 82272; 83605; 84153; 85025; 85652; 86140; 87040; 87045; 87046; G0378; J2405